=== PATIENT | female | born 1995 | race Caucasian/White ===

== ENCOUNTER 2017-08-18 11:52 | Emergency (ER) | payer OTHER ==
[~2017-08-18] VITALS: Ht 154.9 cm; Wt 62.3 kg
[2017-08-18 11:56] VITALS: BP 125/74
[2017-08-18] MEDS ORDERED: DiphenhydrAMINE HCL 25 MG CAPSULE PO ONE (13:00)
[2017-08-18] MEDS ORDERED: PredniSONE 20 MG TABLET PO ONE (13:00)
== END 2017-08-18 13:20 | disposition home or self-care (01) ==
LOC: EMS 11:52
DX: T78.40XA Allergy, unspecified, initial encounter (principal); L29.3 Anogenital pruritus, unspecified; F12.90 Cannabis use, unspecified, uncomplicated; X58.XXXA Exposure to other specified factors, initial encounter
CPT/HCPCS: 99283; J7512